=== PATIENT | female | born 1990 | race Two or more races ===

== ENCOUNTER 2024-04-20 19:06 | Inpatient (IN) | payer OTHER ==
[~2024-04-20] VITALS: Ht 152.4 cm; Wt 3.2 kg
[2024-04-20 19:45] VITALS: BP 115/74; O2SAT 97
[2024-04-20 20:21] LABS: HEMATOCRIT 34.9 % (36.0-45.00); HEMOGLOBIN 11.7 g/dL (12.0-15.00); MEAN CELL VOLUME 81.7 fL (80.00-100.00); MEAN CORPUSCULAR HEMOGLOBIN 27.3 pg (27.00-32.0); MEAN CORPUSCULAR HGB CONC 33.4 g/dl (32.0-36.0); PLATELET COUNT 355 K/uL (150-450); RED BLOOD COUNT 4.28 M/uL (4.00-6.00)
[2024-04-20] MEDS ORDERED: ECOTRIN81 MG PO (20:34)
[2024-04-20] MEDS ORDERED: PRENATAL + DHA1 EACH PO (20:34)
[2024-04-20 20:35] LABS: PH,URINE 6.5 (5.0-8.0); URINE APPEARANCE Cloudy; URINE BILIRRUBIN Negative (NEGATIVE); URINE BLOOD Large; URINE COLOR Yellow; URINE GLUCOSE Negative (NEGATIVE); URINE LEUKOCYTE Large; URINE NITRATE Negative; URINE PROTEIN Negative (NEGATIVE)
[2024-04-20 20:36] LABS: URINE BACTERIA 2666.9 uL (0.0-1933); URINE EPITHELIAL CELLS 66.8 uL (0.0-38.8); URINE RBC 550.3 uL (0.0-20.8); URINE WBC 30.5 uL (0.0-23.2)
[2024-04-20 20:42] LABS: INR 0.95; PARTIAL THROMBOPLASTIN TIME 24.4 SECONDS (22.0-34.0); PROTHROMBIN TIME 10.4 SECONDS (9.0-11.5)
[2024-04-20 20:48] LABS: ALBUMIN 2.6 gm/dL (3.4-5.0); BILIRUBIN TOTAL 0.49 mg/dL (0.3-1.2); CALCIUM 9.8 mg/dL (8.5-10.1); CREATININE SERUM 0.75 mg/dL (0.55-1.02); GFR 87.43; GLOBULINA 4.1 G/DL (2.4-3.5); POTASSIUM 4.2 mEq/L (3.5-5.1); TOTAL PROTEIN 6.7 gm/dL (6.4-8.2)
[2024-04-20 20:56] LABS: URINE CAST 0.73 uL (0.0-1.40); URINE KETONE 40 (NEGATIVE)
[2024-04-20 20:57] LABS: URINE YEAST FEW /hpf
[2024-04-20 23:23] VITALS: BP 115/76
[2024-04-21 03:44] VITALS: BP 113/74
[2024-04-21 06:28] VITALS: BP 117/74; O2SAT 99
[2024-04-21] MEDS ORDERED: RINGERS SOLUTION,LACTATED 1,000 ML IV SCH (06:45)
[2024-04-21 11:01] VITALS: BP 110/75; O2SAT 97
[2024-04-21] MEDS ORDERED: AMPICILLIN SODIUM 2,000 MG VIAL IV ONE (12:00)
[2024-04-21 15:19] VITALS: BP 107/69
[2024-04-21] MEDS ORDERED: AMPICILLIN SODIUM 1,000 MG VIAL IV SCH (16:00)
[2024-04-21 20:15] VITALS: BP 113/67
[2024-04-21 23:13] VITALS: BP 100/67
[2024-04-22 03:49] VITALS: BP 112/75
[2024-04-22 07:31] VITALS: BP 110/72
[2024-04-22 11:26] VITALS: BP 108/70
[2024-04-22] MEDS ORDERED: OXYTOCIN 10 UNITS/ML VIAL ONE (14:24)
[2024-04-22] MEDS ORDERED: OXYTOCIN 10 UNITS/ML VIAL IV ONE (14:45)
[2024-04-22] MEDS ORDERED: ERYTHROMYCIN BASE OPHT 1GM EACH TUBE OP ONE (14:45)
[2024-04-22] MEDS ORDERED: OXYTOCIN 1,000 ML IV SCH (16:30)
[2024-04-22] MEDS ORDERED: MORPHINE SULFATE 4 MG/ML CARTRIDGE IV PRN (16:30)
[2024-04-22] MEDS ORDERED: CEFAZOLIN SODIUM 1,000 MG VIAL IV ONE (17:00)
[2024-04-22] MEDS ORDERED: MORPHINE SULFATE 4 MG/ML VIAL IV ONE ×2 (17:20→17:50)
[2024-04-22 18:51] VITALS: BP 131/80
[2024-04-23 02:47] VITALS: BP 132/83
[2024-04-23] MEDS ORDERED: OxyCODONE HCL/APAP UD (PERCOCET) PO PRN (07:45)
[2024-04-23 08:30] VITALS: BP 140/80
[2024-04-23 12:59] VITALS: BP 138/87
[2024-04-23 15:54] VITALS: BP 123/80
[2024-04-23 20:04] LABS: ABG PH 7.193 (7.35-7.45)
[2024-04-23 20:05] LABS: ABG pCO2 61.4 mmHg (35-45); BASE EXCESS -6.1 mmol/l; BICARBONATE 23.1 mmol/l (23-25)
[2024-04-23 20:06] LABS: ABG PO2 23.5 mmHg (80-100); o2 21 %; puncture site UMBILICAL
[2024-04-24 01:46] VITALS: BP 124/63
[2024-04-24 07:56] VITALS: BP 140/80
[2024-04-24 15:38] VITALS: BP 128/83
[2024-04-25] VITALS: BP 110/75
[2024-04-25 11:45] VITALS: BP 111/78
== END 2024-04-25 15:04 | disposition home or self-care (01) | DRG 788 ==
LOC: LDR 19:06 → OB/GYN 04-22 16:44
PROVIDERS: ADMIT Obstetrics & Gynecology Obstetrics; ATTEND Obstetrics & Gynecology Obstetrics
PROC: 4A1HXCZ Monitoring of Products of Conception, Cardiac Rate, External Approach (ICD-10-PCS; 2024-04-20)
PROC: 3E033VJ Introduction of Other Hormone into Peripheral Vein, Percutaneous Approach (ICD-10-PCS; 2024-04-22)
PROC: 10D00Z1 Extraction of Products of Conception, Low, Open Approach (ICD-10-PCS; principal; 2024-04-22 15:00)
DX: O10.92 Unspecified pre-existing hypertension complicating childbirth (principal); Z3A.37 37 weeks gestation of pregnancy; Z37.0 Single live birth